=== PATIENT | female | born 1960 | race Caucasian/White ===

== ENCOUNTER 2022-03-27 09:21 | Outpatient (CLI) | payer BC, SELFPAY ==
[2022-03-27 13:28] LABS: Chloride* 105 mmol/L (96-114); Potassium* 4.6 mmol/L (3.6-5.1); Sodium* 142 mmol/L (135-149)
[2022-03-27 13:31] LABS: Blood Urea Nitrogen* 18 mg/dL (7-30); Carbon Dioxide* 28 mmol/L (20-32); Creatinine* 0.6 mg/dL (0.5-1.5); Estimated Glomerular Filt Rate 103 ml/min
[2022-03-27 13:32] LABS: Calcium* 9.7 mg/dL (8.4-10.6); Glucose* 104 mg/dL (60-115)
== END 2022-03-27 09:22 | disposition home or self-care (01) ==
LOC: LKVREF 09:22
PROVIDERS: PCP Family Medicine; Visit Provider Family Medicine
DX: I10 Essential (primary) hypertension (principal)
CPT/HCPCS: 80048

== ENCOUNTER 2023-10-13 14:17 | Outpatient (CLI) | payer BC, SELFPAY | END 2023-10-13 14:18 | disposition home or self-care (01) | PROVIDERS: PCP Family Medicine; Visit Provider Family Medicine | DX: I10 Essential (primary) hypertension (principal); Z13.29 Encounter for screening for other suspected endocrine disorder | CPT/HCPCS: 80048; 84443 ==

== ENCOUNTER 2024-08-26 09:08 | Outpatient (CLI) | payer BC, SELFPAY | END 2024-08-26 09:09 | disposition home or self-care (01) | PROVIDERS: PCP Family Medicine; Visit Provider Family Medicine | DX: I10 Essential (primary) hypertension (principal); R63.5 Abnormal weight gain; Z13.6 Encounter for screening for cardiovascular disorders | CPT/HCPCS: 80053; 80061; 82533; 84439 ==